=== PATIENT | male | born 2000 | race African-American/Black ===

== ENCOUNTER 2022-06-18 18:31 | Emergency (ER) | payer MEDICAID ==
[~2022-06-18] VITALS: Ht 180.3 cm; Wt 100.0 kg
[2022-06-18 18:33] VITALS: BP 123/77
[2022-06-18] MEDS ORDERED: AMOX500C2 PO (22:13)
[2022-06-18] MEDS ORDERED: IBUP-2070 PO (22:13)
[2022-06-19] MEDS ORDERED: MECL-134 PO (19:56)
[2022-06-19] MEDS ORDERED: ACET-784 PO (19:57)
== END 2022-06-18 22:41 | disposition home or self-care (01) ==
LOC: EMS 18:34
DX: H66.93 Otitis media, unspecified, bilateral (principal)
CPT/HCPCS: 99283

== ENCOUNTER 2022-06-19 16:29 | Emergency (ER) | payer MEDICAID ==
[~2022-06-19] VITALS: Ht 177.8 cm; Wt 100.0 kg
[~2022-06-19 16:29] MED LIST: AMOX500C2 PO; IBUP-2070 PO
[2022-06-19] MEDS ORDERED: ONDANSETRON HCL 4 MG TABLET PO ONE (18:45)
[2022-06-19] MEDS ORDERED: ACETAMINOPHEN 325 MG TABLET PO ONE (18:45)
[2022-06-19] MEDS ORDERED: MECLIZINE HCL 25 MG TABLET PO ONE (18:45)
[2022-06-19 19:30] LABS: COVID AG,FIA SOURCE NASAL SWAB
[2022-06-19 19:44] VITALS: BP 140/84
[2022-06-19] MEDS ORDERED: MECL-134 PO (19:56)
[2022-06-19] MEDS ORDERED: ACET-784 PO (19:57)
[2022-06-19 19:58] LABS: INFLUENZA TYPE A NEGATIVE FOR TYPE A (NEGATIVE); INFLUENZA TYPE B NEGATIVE FOR TYPE B (NEGATIVE)
== END 2022-06-19 20:16 | disposition home or self-care (01) ==
LOC: EMS 16:29
DX: R42 Dizziness and giddiness (principal); Z20.822 Contact with and (suspected) exposure to COVID-19
CPT/HCPCS: 99284; 87426; 87804; 93005; Q0162

== ENCOUNTER 2023-03-15 08:45 | Emergency (ER) | payer MEDICAID ==
[~2023-03-15] VITALS: Ht 177.8 cm; Wt 111.4 kg
[~2023-03-15 08:45] MED LIST changes: +ACET-784 PO; +IBUP-1492 PO; -IBUP-2070 PO; +MECL-134 PO
[2023-03-15] MEDS ORDERED: LIDOCAINE 5% TRANSDERMAL PATCH TD ONE (09:30)
[2023-03-15] MEDS ORDERED: KETOROLAC TROMETHAMINE 30 MG/ML VIAL IM ONE (09:30)
[2023-03-15] MEDS ORDERED: CYCLOBENZAPRINE HCL 10 MG TABLET PO ONE (09:30)
[2023-03-15] MEDS ORDERED: LIDO700A15 TP (10:18)
[2023-03-15] MEDS ORDERED: CYCL-448 PO (10:18)
[2023-03-15] MEDS ORDERED: IBUP-1492 PO (10:18)
[2023-03-15 10:29] VITALS: BP 132/72; PULSE 67; RESP 18; TEMP 97.9
== END 2023-03-15 10:50 | disposition home or self-care (01) ==
LOC: EMS 08:55
DX: M54.6 Pain in thoracic spine (principal)
CPT/HCPCS: 99283; 71045; 96372; J1885

== ENCOUNTER 2023-08-07 10:11 | Emergency (ER) | payer MEDICAID ==
[~2023-08-07] VITALS: Ht 180.3 cm; Wt 118.2 kg
[~2023-08-07 10:11] MED LIST changes: -ACET-784 PO; -AMOX500C2 PO; +CYCL-448 PO; +LIDO700A15 TP; -MECL-134 PO
[2023-08-07 12:08] VITALS: TEMP 98
[2023-08-07 13:19] LABS: BASOPHILS % (AUTO) 0.3 % (0.0-2.0); EOSINOPHILS % (AUTO) 1.5 % (1.0-6.0); HEMATOCRIT 46.4 % (41-53); LYMPHOCYTES # (AUTO) 2.7 K/uL (1.0-4.8); LYMPHOCYTES % (AUTO) 32.3 % (22.0-44.0); MEAN CORPUSCULAR HEMOGLOBIN 32.5 pg (26.0-34.0); MEAN CORPUSCULAR HGB CONC 34.5 G/dL (31.0-37.0); MEAN CORPUSCULAR VOLUME 94 fL (80-100); MONOCYTES # (AUTO) 0.7 K/uL (0.1-1.0); NEUTROPHILS # (AUTO) 4.9 K/uL (1.8-7.7); NEUTROPHILS % (AUTO) 57.9 % (40.0-70.0); PLATELET COUNT (AUTO) 212 K/uL (150-450); RED BLOOD CELL COUNT(AUTO) 4.94 MIL/uL (4.50-5.90); RED CELL DISTRIBUTION WIDTH 12.4 % (11.5-14.5); WHITE BLOOD COUNT (AUTO) 8.4 K/uL (4.5-11.0)
[2023-08-07 13:28] LABS: ANION GAP 9 mmol/L (8-16); CALCIUM, TOTAL 9.7 mg/dL (8.8-10.5); CARBON DIOXIDE 28 mmol/L (22-29); CHLORIDE 102 mmol/L (98-107); CREATININE 0.75 mg/dL (0.60-1.30); GLOMERULAR FILTR. RATE CALC > 60 mL/min (>60); GLUCOSE,RANDOM 89 mg/dL (70-110); POTASSIUM 4.1 mmol/L (3.5-5.1); SODIUM SERUM 139 mmol/L (136-145); UREA NITROGEN, BLOOD 14 mg/dL (7-18)
[2023-08-07 13:35] LABS: ALANINE AMINOTRANSFERASE 26 U/L (12-78); ALBUMIN 4.5 g/dL (3.4-5.0); ALKALINE PHOSPHATASE 92 U/L (46-116); ASPARTATE AMINOTRANSFERASE 22 U/L (15-37); BILIRUBIN,TOTAL 0.7 mg/dL (0.1-1.0); TOTAL PROTEIN, SERUM 8.9 g/dL (6.4-8.2)
[2023-08-07 13:37] LABS: TROPONIN I-HIGH SENSITIVITY 5 ng/L (<76)
[2023-08-07 13:55] VITALS: BP 135/85; PULSE 83; RESP 18
[2023-08-07 15:05] LABS: C-REACTIVE PROTEIN QUANT 0.05 mg/dL (0.00-0.30)
[2023-08-07 15:20] LABS: COVID AG,FIA SOURCE NASAL SWAB
[2023-08-07 15:41] LABS: SARS-COV2 (COVID) ANTIGEN,FIA Negative (Negative)
[2023-08-07] MEDS ORDERED: IBUP-1492 PO (16:15)
[2023-08-07] MEDS ORDERED: COLC0.6T73 PO (16:15)
[2023-08-07] MEDS: COLCHICINE 0.6 MG TABLET PO ONE (16:16)
[2023-08-07] MEDS: IBUPROFEN 600 MG TABLET PO ONE (16:16)
== END 2023-08-07 16:26 | disposition home or self-care (01) ==
LOC: EMS 10:39
DX: I31.9 Disease of pericardium, unspecified (principal); Z20.822 Contact with and (suspected) exposure to COVID-19
CPT/HCPCS: 71045; 80053; 84484; 85025; 85651; 86140; 93005; 93306; 99285; 36415-L1; 36415-TC

== ENCOUNTER 2023-08-13 16:22 | Emergency (ER) | payer MEDICAID ==
[~2023-08-13] VITALS: Ht 177.8 cm; Wt 118.2 kg
[~2023-08-13 16:22] MED LIST changes: +COLC0.6T73 PO
[2023-08-13 16:27] VITALS: TEMP 99.1
[2023-08-13 17:37] VITALS: BP 141/73; PULSE 88; RESP 18
[2023-08-13 17:58] LABS: BASOPHILS % (AUTO) 0.3 % (0.0-2.0); EOSINOPHILS % (AUTO) 1.7 % (1.0-6.0); HEMATOCRIT 46.2 % (41-53); HEMOGLOBIN 15.9 g/dL (13.5-17.5); LYMPHOCYTES # (AUTO) 2.9 K/uL (1.0-4.8); LYMPHOCYTES % (AUTO) 28.3 % (22.0-44.0); MEAN CORPUSCULAR HEMOGLOBIN 32.3 pg (26.0-34.0); MEAN CORPUSCULAR HGB CONC 34.3 G/dL (31.0-37.0); MEAN CORPUSCULAR VOLUME 94 fL (80-100); MONOCYTES # (AUTO) 0.9 K/uL (0.1-1.0); MONOCYTES % (AUTO) 8.6 % (2.0-9.0); NEUTROPHILS # (AUTO) 6.2 K/uL (1.8-7.7); NEUTROPHILS % (AUTO) 61.1 % (40.0-70.0); PLATELET COUNT (AUTO) 247 K/uL (150-450); RED BLOOD CELL COUNT(AUTO) 4.91 MIL/uL (4.50-5.90); RED CELL DISTRIBUTION WIDTH 12.4 % (11.5-14.5); WHITE BLOOD COUNT (AUTO) 10.2 K/uL (4.5-11.0)
[2023-08-13 18:06] LABS: ANION GAP 10 mmol/L (8-16); CALCIUM, TOTAL 9.4 mg/dL (8.8-10.5); CARBON DIOXIDE 27 mmol/L (22-29); CHLORIDE 102 mmol/L (98-107); CREATININE 0.86 mg/dL (0.60-1.30); GLOMERULAR FILTR. RATE CALC > 60 mL/min (>60); GLUCOSE,RANDOM 97 mg/dL (70-110); POTASSIUM 4.1 mmol/L (3.5-5.1); SODIUM SERUM 139 mmol/L (136-145); UREA NITROGEN, BLOOD 15 mg/dL (7-18)
[2023-08-13 18:11] LABS: ALCOHOL, BLOOD (SERUM) < 3 mg/dL (0-10)
[2023-08-13 18:30] LABS: ALANINE AMINOTRANSFERASE 31 U/L (12-78); ALBUMIN 4.4 g/dL (3.4-5.0); ALKALINE PHOSPHATASE 97 U/L (46-116); ASPARTATE AMINOTRANSFERASE 24 U/L (15-37); BILIRUBIN,TOTAL 0.3 mg/dL (0.1-1.0); C-REACTIVE PROTEIN QUANT 0.05 mg/dL (0.00-0.30); CREATINE KINASE, TOTAL ONLY 124 U/L (39-308); TOTAL PROTEIN, SERUM 8.3 g/dL (6.4-8.2)
[2023-08-13 18:31] LABS: TROPONIN I-HIGH SENSITIVITY Less Than 4 ng/L (<76)
[2023-08-13 18:34] LABS: ERYTHROCYTE SEDIMENTATION RATE 13 MM/HR (0-15)
== END 2023-08-13 20:43 | disposition home or self-care (01) ==
LOC: EMS 16:22
DX: R00.2 Palpitations (principal); R07.89 Other chest pain
CPT/HCPCS: 99285; 71045; 80053; 82550; 83605; 84484; 85025; 85651; 86140; 36415; 93005; G0480

== ENCOUNTER 2024-06-28 23:53 | Emergency (ER) | payer MEDICAID ==
[~2024-06-28] VITALS: Ht 180.3 cm; Wt 118.2 kg
[~2024-06-28 23:53] MED LIST changes: +COLC-3 PO; -COLC0.6T73 PO
[2024-06-29 00:36] VITALS: BP 131/83; PULSE 77; RESP 20; TEMP 98.3; O2SAT 99
[2024-06-29 00:36] LABS: BASOPHILS % (AUTO) 0.3 % (0.0-2.0); EOSINOPHILS % (AUTO) 2.7 % (1.0-6.0); HEMATOCRIT 42.6 % (41-53); LYMPHOCYTES # (AUTO) 3.6 K/uL (1.0-4.8); LYMPHOCYTES % (AUTO) 33.7 % (22.0-44.0); MEAN CORPUSCULAR HEMOGLOBIN 33.4 pg (26.0-34.0); MEAN CORPUSCULAR HGB CONC 35.3 G/dL (31.0-37.0); MEAN CORPUSCULAR VOLUME 95 fL (80-100); MONOCYTES # (AUTO) 0.9 K/uL (0.1-1.0); MONOCYTES % (AUTO) 8.5 % (2.0-9.0); NEUTROPHILS # (AUTO) 5.9 K/uL (1.8-7.7); NEUTROPHILS % (AUTO) 54.8 % (40.0-70.0); PLATELET COUNT (AUTO) 214 K/uL (150-450); RED CELL DISTRIBUTION WIDTH 12.8 % (11.5-14.5); WHITE BLOOD COUNT (AUTO) 10.7 K/uL (4.5-11.0)
[2024-06-29 00:42] LABS: ANION GAP 8 mmol/L (8-16); CALCIUM, TOTAL 8.3 mg/dL (8.8-10.5); CARBON DIOXIDE 28 mmol/L (22-29); CHLORIDE 102 mmol/L (98-107); CREATININE 0.84 mg/dL (0.60-1.30); GLOMERULAR FILTR. RATE CALC > 60 mL/min (>60); GLUCOSE,RANDOM 93 mg/dL (70-110); SODIUM SERUM 138 mmol/L (136-145); UREA NITROGEN, BLOOD 11 mg/dL (7-18)
[2024-06-29 00:50] LABS: TROPONIN I-HIGH SENSITIVITY 6 ng/L (<76)
== END 2024-06-29 02:14 | disposition home or self-care (01) ==
LOC: EMS 23:55
DX: R07.89 Other chest pain (principal); F12.90 Cannabis use, unspecified, uncomplicated; Z79.899 Other long term (current) drug therapy
CPT/HCPCS: 71045; 80048; 84484; 85025; 93005; 99285; 36415-L1; 36415-TC